=== PATIENT | male | born 1925 | race Caucasian/White ===

== ENCOUNTER 2016-09-02 21:12 | Emergency (ER) | payer OTHER ==
[~2016-09-02] VITALS: Ht 162.6 cm; Wt 45.1 kg
[~2016-09-02 21:12] MED LIST: AMIO0.1T PO; AMLO-110 PO; ASPCH81X PO; CALC0.2510 PO; CARB25TA14 PO; CHOL100010 PO; FERR1TAB13 PO; FRS/40 PO; GALA8TAB PO; ISOS60TA25 PO; NTRGSL/4 UT; PRLSR20 PO; RIVA1.5C6 PO; SIMV20TA2 PO
[2016-09-02 21:26] VITALS: TEMP 37.1; Ht 162.6 cm; Wt 45.1 kg
[2016-09-02 22:01] LABS: HEMATOCRIT 37.4 % (42-52); MEAN CELL VOLUME 98.2 fL (80-100); MEAN CORPUSCULAR HEMOGLOBIN 32.5 pg (25-34); MEAN CORPUSCULAR HGB CONC 33.2 g/dl (32-36); MEAN PLATELET VOLUME 10.3 fL (7.4-10.4); PLATELET COUNT 171 K/uL (130-400); RED BLOOD COUNT 3.81 M/uL (4.7-6.1); WHITE BLOOD COUNT 6.61 K/uL (4.8-10.8)
[2016-09-02] MEDS ORDERED: CARB25TA14 PO (22:04)
[2016-09-02 22:05] LABS: PARTIAL THROMBOPLASTIN RATIO 0.9; PROTHROMBIN TIME (PATIENT) 10.7 SECONDS (9.0-12.0)
[2016-09-02 22:08] LABS: BUN/CREATININE RATIO 18.3 (10-20); CALCIUM 7.8 mg/dl (8.5-10.1); CREATININE 2.3 mg/dl (0.60-1.40); POTASSIUM 4.2 mmol/L (3.5-5.1)
[2016-09-02 22:13] LABS: ALB/GLOB RATIO 0.9 (0.9-2)
--- NOTE | 2016-09-02 22:41 | DIAGNOSTIC IMAGING REPORT ---
CHEST ONE VIEW PORTABLE HISTORY: Atypical chest pain COMPARISON: None. FINDINGS: Rotated study. No pneumothorax. No pleural effusions. Elevation of the left hemidiaphragm. Some of this could be related to the mildly distended gastric bubble. The heart is mildly enlarged. There is a gas filled mildly distended esophagus. Tortuous thoracic aorta. Suspect a hiatus hernia. No focal lung consolidations to suggest pneumonia. No evidence for pulmonary edema. Left basilar linear densities favor subsegmental atelectasis. IMPRESSION: 1. Rotated study. 2. Mild elevation of the left hemidiaphragm with left basilar densities suggesting subsegmental atelectasis. 3. Mildly distended gas-filled esophagus. There may be a small hiatus hernia. The gastric bubble is slightly distended. Electronically signed by: Scotty Molina M.D. 09/02/2016 10:40 PM Dictated Date/Time: 09/02/2016 10:38 PM
--- NOTE | 2016-09-03 00:05 | EMERGENCY ROOM VISIT NOTE ---
History Report prepared by Bebe: Rico Light Under the Supervision of: Dr. Hood Reed D.O. First contact with patient: 22:15 Chief Complaint: CHEST PAIN Stated Complaint: CHEST PAIN, SYNCOPE Nursing Triage Summary: lives at home. chest pain all day. Called EMS when patient had syncopal episode. History of Present Illness The patient is a 89 year old male who presents to the Emergency Room with complaints of chest pain that began this morning. This history if given by the patient's son secondary to the language barrier. His pain has since resolved. He then had an episode of syncope that lasted for under 1 minute. Before this episode, he became short of breath. He is currently not in pain. He has a past medical history of Parkinson's and hypertension. He denies any seizures. Source of History: patient, family Onset: this morning Position: chest Symptom Intensity: minimal Quality: ache Timing: resolved Associated Symptoms: + LOC, No chest pain, No SOB Note: He denies any seizures. Review of Systems See HPI for pertinent positives & negatives. A total of 10 systems reviewed and were otherwise negative. Past Medical & Surgical Medical Problems: (1) HTN (hypertension) (2) Parkinson disease Family History Omitted secondary to age. Social History Smoking Status: Never Smoker Smokeless Tobacco Use: No Alcohol Use: none Drug Use: none Marital Status: Housing Status: lives with significant other Occupation Status: retired Current/Historical Medications Scheduled Amlodipine (Norvasc), 1 TAB PO DAILY Aspirin (Aspirin Chewable), 81 MG PO DAILY Carbidopa/Levodopa (Sinemet 25MG/250MG), 1 TAB PO QID Ferrous Sulfate (Kp Ferrous Sulfate), 1 TAB PO Q2D Furosemide (Lasix), 1 TAB PO Q2D Isosorbide Mononitrate Ext Rel (Imdur Ext Rel), 60 MG PO QAM Scheduled PRN Nitroglycerin (Nitrostat), 0.4 MG UT PRN PRN for Chest Pain Allergies Coded Allergies: No Known Allergies (Unverified , 10/11/15) Physical Exam Vital Signs Date Time Temp Pulse Resp B/P (MAP) Pulse Ox O2 Delivery O2 Flow Rate FiO2 09/02/16 23:01 132/59 09/02/16 22:42 53 16 98 Room Air 09/02/16 22:31 135/58 09/02/16 22:12 53 21 99 Room Air 09/02/16 22:01 125/61 09/02/16 21:58 Room Air 09/02/16 21:42 55 15 96 Room Air 09/02/16 21:31 143/66 09/02/16 21:26 54 09/02/16 21:26 37.1 54 20 165/63 97 Room Air 09/02/16 21:26 Room Air 09/02/16 21:21 165/63 Physical Exam CONSTITUTIONAL/VITAL SIGNS: Reviewed / noted above. GENERAL: Non-toxic in appearance. INTEGUMENTARY: Warm, dry, and [place]. HEAD: Normocephalic. EYES: without scleral icterus or trauma. ENT/OROPHARYNX: clear and moist. LYMPHADENOPATHY/NECK: Is supple without lymphadenopathy or meningismus. RESPIRATORY: Lungs clear and equal. CARDIOVASCULAR: Regular rate and rhythm. GI/ABDOMEN: Soft and nontender. No organomegaly or pulsatile mass. No rebound or guarding. Normal bowel sounds. EXTREMITIES: Warm and well perfused. BACK: No CVA tenderness. NEUROLOGICAL: Intact without focal deficits. PSYCHIATRIC: normal affect. MUSCULOSKELETAL: Normally developed with good muscle tone. Medical Decision & Procedures ER Provider Diagnostic Interpretation: Radiology results as stated below per my review and radiologist interpretation: CHEST ONE VIEW PORTABLE HISTORY: Atypical chest pain COMPARISON: None. FINDINGS: Rotated study. No pneumothorax. No pleural effusions. Elevation of the left hemidiaphragm. Some of this could be related to the mildly distended gastric bubble. The heart is mildly enlarged. There is a gas filled mildly distended esophagus. Tortuous thoracic aorta. Suspect a hiatus hernia. No focal lung consolidations to suggest pneumonia. No evidence for pulmonary edema. Left basilar linear densities favor subsegmental atelectasis. IMPRESSION: 1. Rotated study. 2. Mild elevation of the left hemidiaphragm with left basilar densities suggesting subsegmental atelectasis. 3. Mildly distended gas-filled esophagus. There may be a small hiatus hernia. The gastric bubble is slightly distended. Electronically signed by: Scotty Molina M.D. 09/02/2016 10:40 PM Dictated Date/Time: 09/02/2016 10:38 PM Laboratory Results 09/02/16 21:05 09/02/16 21:05 Test 09/02/16 21:05 09/02/16 21:59 Red Blood Count 3.81 M/uL (4.7-6.1) Mean Corpuscular Volume 98.2 fL (80-100) Mean Corpuscular Hemoglobin 32.5 pg (25-34) Mean Corpuscular Hemoglobin Concent 33.2 g/dl (32-36) RDW Standard Deviation 48.9 fL (36.4-46.3) RDW Coefficient of Variation 13.7 % (11.5-14.5) Mean Platelet Volume 10.3 fL (7.4-10.4) Prothrombin Time 10.7 SECONDS (9.0-12.0) Prothromb Time International Ratio 1.0 (0.9-1.1) Activated Partial Thromboplast Time 23.1 SECONDS (21.0-31.0) Partial Thromboplastin Ratio 0.9 Anion Gap 8.0 mmol/L (3-11) Est Creatinine Clear Calc Drug Dose 13.9 ml/min Estimated GFR () 28.1 Estimated GFR (Non- 24.3 BUN/Creatinine Ratio 18.3 (10-20) Calcium Level 7.8 mg/dl (8.5-10.1) Total Bilirubin 0.2 mg/dl (0.2-1) Aspartate Amino Transf (AST/SGOT) 11 U/L (15-37) Alanine Aminotransferase (ALT/SGPT) 8 U/L (12-78) Alkaline Phosphatase 77 U/L (45-117) Total Creatine Kinase 20 U/L (39-308) Creatine Kinase MB 3.0 ng/ml (0.5-3.6) Creatine Kinase MB Ratio 15.0 (0-3.0) Total Protein 6.5 gm/dl (6.4-8.2) Albumin 3.1 gm/dl (3.4-5.0) Globulin 3.4 gm/dl (2.5-4.0) Albumin/Globulin Ratio 0.9 (0.9-2) Bedside Troponin I < 0.030 ng/ml (0-0.045) Laboratory results as stated above per my review. ECG Indication: chest pain Rate (beats per minute): 52 Rhythm: sinus bradycardia Findings: no acute ischemic change, no ectopy ED Course 2215: Previous medical records were reviewed. The patient was evaluated in room C10. A complete history and physical examination was performed. 0008: On reevaluation, the patient is resting. I discussed the results and findings with the patient. He verbalized agreement of the treatment plan. He was discharged home. Medical Decision Differentials considered include acute myocardial infarction, acute coronary syndrome, myocarditis, pericarditis, pericardial effusions /tamponade, esophageal perforation, thoracic aortic dissection, pulmonary embolism, pneumonia, pneumothorax, pancreatitis, shingles, acute cholecystitis, perforated abdominal viscus. Medication Reconciliation: I attest that I have personally reviewed the patient' s current medication list. Blood pressure Screening: Patient was found to have an elevated blood pressure and was referred to their primary doctor for recheck and further treatment. This is an 89-year-old male who presents to the ED now with a chief complaint of chest pain. The patient reportedly had chest pain all day. He had some associated shortness of breath. The patient had a reported syncopal episode lasted for less than a minute this evening when he was sitting. He was brought in for evaluation. He currently is not having any symptoms. He apparently has had stress test in the past when he was living in [place] but refused angioplasty. He is resting comfortably on the bed without complaints. His exam was unremarkable. CBC is normal. Creatinine is about baseline. Troponin is negative. EKG did not show any ischemic changes. The patient and family was told the results. The patient was felt to be stable for discharge and outpatient follow-up. Impression Primary Impression: Substernal precordial chest pain Scribe Attestation The scribe's documentation has been prepared under my direction and personally reviewed by me in its entirety. I confirm that the note above accurately reflects all work, treatment, procedures, and medical decision making performed by me. Departure Information Dispostion Home / Self-Care Referrals Danie Terrell D.O.[facility] (PCP) Forms HOME CARE DOCUMENTATION FORM, IMPORTANT VISIT INFORMATION Patient Instructions My [facility] Additional Instructions Follow-up with your doctor for further care and evaluation in 1-2 days. Return to the emergency department for worsening or new symptoms or any concerns. You have been examined and treated today on an emergency basis only. This is not a substitute for, or an effort to provide, complete comprehensive medical care. It is impossible to recognize and treat all injuries or illnesses in a single emergency department visit. It is therefore important that you follow up closely with your doctor. Call as soon as possible for an appointment.
[2016-09-03 00:15] VITALS: BP 129/60; PULSE 49; O2SAT 99
== END 2016-09-03 00:16 | disposition home or self-care (01) ==
LOC: EDBD 21:12 → C.EDC 21:14
DX: R07.2 Precordial pain (principal); R00.1 Bradycardia, unspecified; I10 Essential (primary) hypertension; G20 Parkinson's disease; Z79.82 Long term (current) use of aspirin; Z79.899 Other long term (current) drug therapy